=== PATIENT | male | born 1965 | race Caucasian/White ===

== ENCOUNTER 2019-08-10 14:42 | Emergency (ER) | payer SELFPAY ==
[~2019-08-10] VITALS: Ht 170.2 cm; Wt 72.2 kg
[~2019-08-10 14:42] MED LIST: OLAN20TA3 PO
[2019-08-10 14:46] VITALS: BP 135/96
[2019-08-10] MEDS ORDERED: DIPH,PERTUSS(ACELL),TET VAC/PF 0.5 ML IM-VACC ONE ×2 (15:17→15:30)
== END 2019-08-10 15:28 | disposition home or self-care (01) ==
LOC: ED 15:00
DX: L03.011 Cellulitis of right finger (principal); B35.3 Tinea pedis
CPT/HCPCS: 90471; 90715